=== PATIENT | female | born 1960 | race Caucasian/White ===

== ENCOUNTER → 2020-09-19 | Day surgery (SDC) | payer OTHER ==
[~2020-09-19] VITALS: Ht 178 cm; Wt 82.7 kg
[~2020-09-19] MED LIST: BACLOFEN 10MG T10 MG PO; CALCIUM + VITA1 EACH PO; NAPROXEN500 MG PO; PERCOCET 5-3251 EACH PO; PROBIOTIC1 EAC1 PO
== END | disposition home or self-care (01) ==
LOC: FAS 06:29
DX: Z12.11 Encounter for screening for malignant neoplasm of colon (principal); Z90.49 Acquired absence of other specified parts of digestive tract; Z20.822 Contact with and (suspected) exposure to COVID-19; Z96.641 Presence of right artificial hip joint; Z98.890 Other specified postprocedural states; Z88.0 Allergy status to penicillin; Z87.891 Personal history of nicotine dependence
CPT/HCPCS: J2250; J2704; J7120